=== PATIENT | male | born 1975 | race Caucasian/White ===

== ENCOUNTER 2024-08-25 10:19 | Emergency (ER) | payer OTHER, SELFPAY ==
[2024-08-25 10:30] VITALS: BP 150/92; PULSE 73; RESP 16; TEMP 36.8; O2SAT 100
--- OUTSIDE RECORDS SUMMARY | 2024-08-25 10:40 | XMS_ITS | Clinical Summary ---
Author Organization [facility] Address [address] [place] [id number] Care Team Providers Care Spinning Frame Cleaner Name Role Phone Baldemar Murrell MD Primary Care Provider [phone] Allergies No known active allergies Medications No known medications Active Problems Problem Noted Date Diagnosed Date Witnessed episode of apnea 06/28/2019 Essential hypertension 05/24/2019 Family History Medical History Relation Comments Heart Attack Father Hypertension Father Diabetes Mother Breast Cancer Neg Hx Colon Cancer Neg Hx Prostate Cancer Neg Hx Relation Status Comments Father Alive Mother Alive Social History Tobacco Use Types Packs/Day Years Used Date Smoking Tobacco: Never Smokeless Tobacco: Never Alcohol Use Standard Drinks/Week Comments Yes 0 (1 standard drink = 0.6 oz pur e alcohol) occasionally Sex and Gender Information Value Date Recorded Sex Assigned at Not on file Legal Sex Male 5:33 PM BILINGUAL INTERPRETER Gender Identity Not on file Sexual Orientation Not on file Last Filed Vital Signs Vital Sign Reading Time Taken Comments Blood Pressure 132/84 06/28/2019 8:52 AM CDT Pulse 66 06/28/2019 8:52 AM CDT Temperature 36.4 C (97.6 F) 05/24/2019 9:03 AM BILINGUAL INTERPRETER Respiratory Rate 19 05/24/2019 9:03 AM BILINGUAL INTERPRETER Oxygen Saturation 98% 06/28/2019 8:52 AM CDT Inhaled Oxygen Concentration - - Weight 102 kg (224 lb 12.8 oz) 06/28/2019 8:52 A M CDT Height 175.3 cm (5' 9 ) 05/24/2019 9:03 AM BILINGUAL INTERPRETER Body Mass Index 33.2 05/24/2019 9:03 AM BILINGUAL INTERPRETER Plan of Treatment Health Maintenance Due Date Last Done Comments Colorectal Cancer Screening Colonoscopy (10 Years) 1976 Hepatitis C 1994 DTaP, Tdap and Td Vaccines ( 1 - Tdap) 1995 Hepatitis B Vaccines (1 of 3 - 19+ 3-dose series) 1995 Annual Physical 05/24/2020 05/24/2019 COVID-19 Vaccine (1 - 2023-2 5 season) 2023 Meningococcal B Vaccine Aged Out No l onger eligible based on patient's age to complete this topic Meningococcal Vaccine Aged Out No raissa luis armando eligible based on patient's age to complete this topic Pneumococcal Vaccine: Pediat rics (0 to 5 Years) and At-Risk Patients (6 to 49 Years) Aged Out No longer eligi ble based on patient's age to complete this topic RSV Immunizations Under 20 Months Aged Out No longer eligible based on patient's age to complete this topic Insurance [address] Care Teams Spinning Frame Cleaner Relationship Specialty Start Date End Date Baldemar Murrell MD PCP - General FAMILY PRACTICE 05/11/19
--- NOTE | 2024-08-25 10:52 | ED.URI ---
HPI - URI/Sore Throat General Chief Complaint: Upper Respiratory Infection Stated Complaint: sinus infection Time Seen by Provider: 08/25/24 10:44 Source: patient, family, RN notes reviewed and old records reviewed Mode of arrival: ambulatory Limitations: no limitations History of Present Illness HPI Narrative: 49 year old male accompanied by significant other presents to express care with complaint of sinus congestion with drainage, facial pressure in face with stated fevers during the night. Patient reports that he took some NyQuil during the night so he could sleep. Patient reports that he does have increased pressure to face when he bends over and some intermittent headache, reports that he has a sinus infection and needs antibiotic. MD elicited complaint: fever, rhinorrhea, nasal congestion, sinus pain and other (states has sinus infection) Pertinent past history: sinusitis, seasonal allergies and other Onset (ago): day(s) (yesterday evening) Consistency: progressively worsening Pain scale (0-10): 4 Able to tolerate fluids by mouth: Yes Exacerbating factors: leaning forward Treatments prior to arrival: other (NyQuil) Related Data Allergies Allergy/AdvReac Type Severity Reaction Status Date / Time No Known Allergies Allergy Unverified 08/25/24 10:32 Review of Systems Review of Systems: CONSTITUTIONAL: Reports malaise, chills, sweats, or fever. EYES: Denies visual changes, redness, or discharge. ENT: Reports rhinorrhea, congestion, sinus pain, no otalgia and minimal scratchy sore throat. CARDIOVASCULAR: Denies chest pain, palpitations, or edema. RESPIRATORY: Reports occasional cough. Denies dyspnea. GASTROINTESTINAL: Denies abdominal pain, nausea, vomiting, diarrhea SKIN: Denies rash or itching. MUSCULOSKELETAL: Denies myalgia. NEUROLOGIC: reports headache. All systems reviewed & are unremarkable except as noted in HPI and below PMFSH Past Medical History Medical History (Updated 08/25/24 @ 13:17 by Christin Lopez NP) Sinusitis Seasonal allergies Social History Social History (Updated 08/25/24 @ 13:14 by Christin Lopez NP) Smoking status: Never smoker Alcohol intake: current Alcohol use details: social Substance use type: does not use Living arrangements: with family Gender identity (if verbalized by the patient): Male Comments At time of signature, agree with nursing past medical, surgical, social and family history. There is no relevant family history pertinent to the presenting complaint Exam Narrative: GENERAL: Well-appearing, well-nourished, and in no acute distress. HEAD: Normocephalic EYES: PERRLA, conjunctivae clear ENT: Nares clear, turbinates edematous and erythematous, clear to light yellow drainage, facial pressure and headache. Mucous membranes moist. TM pearly corral with dull light reflex bilaterally; no tragal tenderness. Oropharynx erythematous without lesions. Tonsils not enlarged and without exudate, no drooling, no hoarseness, no trismus, uvula midline. post nasal drainage NECK: Supple. No lymphadenopathy CHEST: Clear to auscultation, breath sounds equal. No wheezing, rhonchi, rales, or stridor. No respiratory distress, speaks in full sentences.no cough noted SAO2 100% on room air HEART: Regular rate and rhythm. No murmur heard. SKIN: Warm, dry, no rash. NEURO: Alert and oriented x3. PSYCH: Normal mood and affect Course Course Emergency Course: Patient is aware of diagnosis, understands and agrees to treatment plan. Anticipatory guidance given. Patient agrees to follow-up as directed and is aware of reasons to seek care at the emergency department. Portions of this record may have been created with voice recognition software Level of Care: Express Care Visit Vital Signs Vital signs: Vital Signs Temperature 36.8 C 08/25/24 10:30 Pulse Rate 73 08/25/24 10:30 Respiratory Rate 16 08/25/24 10:30 Blood Pressure 150/92 H 08/25/24 10:30 Pulse Oximetry 100 08/25/24 10:30 Oxygen Delivery Room Air 08/25/24 10:30 Temperature 36.8 C 08/25/24 10:30 Pulse Rate 73 08/25/24 10:30 Respiratory Rate 16 08/25/24 10:30 Blood Pressure 150/92 H 08/25/24 10:30 Pulse Oximetry 100 08/25/24 10:30 Oxygen Delivery Room Air 08/25/24 10:30 Reviewed MDM - URI/Sore Throat MDM Narrative Medical decision making narrative: Differential diagnosis considered: Chao virus, strep pharyngitis, allergic rhinitis, upper respiratory tract infection, sinusitis, rhinosinusitis, nasopharyngitis. viral pharyngitis, otitis media, otitis externa, pneumonia, bronchitis, viral cough syndrome, viral syndrome, and influenza. Exam findings show no acute concerns or changes; patient is non-toxic appearing and is in no distress. Patient is appropriate for outpatient treatment and follow-up. Differential Diagnosis Differential diagnosis: Likely upper respiratory infection, sinusitis, viral infection and other (sinus drainage with headache and sinus prssure) Medical Records Attestation: I reviewed the patient's medical records. Lab Data Attestation: I reviewed the patient's lab results. Critical Care Time Critical Care Time Critical Care Time: No Discharge Plan Discharge Clinical Impression: History of sinusitis, bacterial Upper respiratory infection Qualifiers: URI type: unspecified URI Qualified Code(s): J06.9 - Acute upper respiratory infection, unspecified Patient Disposition: Home Condition: Stable Instructions: Antibiotic Form, Upper Respiratory Infection (ED) Additional Instructions: Increase fluids especially juices and water [id number] cough and cold medicine of your choice for your symptoms Zyrtec Claritin or Stephanie daily include Coricidin brand decongestant due to your elevated blood pressure heat to the face 20-30 minutes 4-6 times a day for pain Salt water gargles, throat lozenges or throat sprays as desired Nasal saline rinses daily and p.r.n. as needed Antibiotic as directed--finished the medication If your symptoms persist, change or worsen significantly before you can contact your personal physician then please, without delay, go to the emergency department for further evaluation. Follow-up with PCP in 7-10 days or sooner if needed Follow up with PCP soon in regards to your blood pressure which is elevated above threshold for referral. Blood pressure above 120/80 may indicate pre-hypertension. 150/92 Patient Language: Georgian Prescriptions: New amoxicillin 500 mg capsule 1,000 mg PO Q12H 10 Days Qty: 40 0RF Rx Instructions: take all doses of antibiotic Follow-up/Referrals: PHYSICIAN,AMBULANCE ATTENDANT [Primary Care Provider] - Time of Disposition: 10:55 Quality [employer] Coma Scale Eyes: Open Verbal: Oriented and Alert Motor: Follows Commands Devika Coma Total Score: 15
== END 2024-08-25 11:03 | disposition home or self-care (01) ==
PROVIDERS: Emergency Provider Registered Nurse; Referring Provider Emergency Medicine
DX: J32.9 Chronic sinusitis, unspecified (principal); J06.9 Acute upper respiratory infection, unspecified
CPT/HCPCS: 99203; G0463

== ENCOUNTER 2025-02-22 13:04 | Emergency (ER) | payer OTHER, SELFPAY ==
--- NOTE | 2025-02-22 13:06 | ED.SKABFB ---
HPI - Skin/Abscess/Foreign Bdy General Chief complaint: Skin/Abscess/Foreign Body Stated complaint: rash Time Seen by Provider: 02/22/25 13:05 Source: patient Mode of arrival: ambulatory Limitations: no limitations History of Present Illness HPI narrative: Patient is a 49-year-old male who presents with rash to face and neck. Patient had tree fall down in the yd nose thinning up on Friday when he got into [place] weekends. Rash is red and swollen but not itchy and lets he puts warm water are on face. Denies any difficulty breathing or vision changes. Related Data Allergies Allergy/AdvReac Type Severity Reaction Status Date / Time No Known Allergies Allergy Verified 02/22/25 13:17 Review of Systems Review of Systems: All systems reviewed & are unremarkable except as noted in HPI and below Constitutional: Constitutional: Denies body ache(s), Denies chills, Denies fatigue, Denies fever(s), Denies headache(s), Denies malaise and Denies weakness Eyes: Eyes: Denies blurry vision, Denies irritation and Denies loss of vision ENT: Denies otalgia, Denies headache(s), Denies nasal discharge, Denies sinus pain and Denies sore throat Cardiovascular: Cardiovascular: Denies chest pain, Denies irregular heart rhythm and Denies dyspnea Respiratory: Respiratory: Denies dyspnea Gastrointestinal: Gastrointestinal: Denies abdominal pain, Denies melena, Denies hematochezia, Denies diarrhea, Denies nausea and Denies vomiting Musculoskeletal: Musculoskeletal: Denies back pain, Denies myalgias and Denies arthralgias Integumentary/Breasts: Skin/Breast: Denies pruritus and Reports rash Neurologic: Denies headache(s), Denies loss of vision and Denies weakness Psychiatric: Psychiatric: Reports no additional psychiatric complaints Endocrine: Endocrine: Denies fatigue PMFSH Past Medical History Medical History Sinusitis Seasonal allergies Social History Social History Alcohol intake: current Alcohol use details: social Substance use type: does not use Living arrangements: with family Gender identity (if verbalized by the patient): Male Comments At time of signature, agree with nursing past medical, surgical, social and family history. There is no relevant family history pertinent to the presenting complaint. Exam Const: General: cooperative, healthy appearing, comfortable, no acute distress and well nourished Nutritional Appearance: well nourished Orientation/consciousness: patient oriented x3 Limitations: no limitations HENMT: Head: normal to inspection, normocephalic and atraumatic Ears: hearing grossly normal bilaterally and external ears normal Face/Nose/Sinus: Normal external nose present, normal facial exam and face symmetric Face and sinus: normal facial exam and face symmetric Mouth: Yes lip normal Eyes: General: appearance normal, both eyes and all related structures Alignment and Position: alignment normal and position normal Periorbital: periorbital findings normal Eyelids: eyelids normal Pupils: Equal, round and reactive pupils present EOM: EOMs intact bilaterally Neck: Neck: normal visual inspection, full ROM and supple Chest: Chest palpation & inspection: normal inspection of the chest Resp: Effort & Inspection: normal respiratory effort and able to speak in complete sentences Auscultation: clear to auscultation bilaterally Cardio: Rate: regular rate Rhythm: regular rhythm Heart sounds: S1 normal heart sound present and S2 normal heart sound present GI: Inspection: normal to inspection Skin: General skin exam: normal color Rashes: rashes noted hives face arrangement grouped, borders sharp and irregular, color red and surface erythematous and warm Neuro: General: patient oriented x3 and moves all extremities Cranial nerves: Yes Equal, round and reactive pupils present Speech: normal speech Gait exam (Neuro): Normal gait present Extrem: General: normal to inspection, full ROM and no edema Psych: Appearance: grossly normal and well kempt Mental Status: mental status grossly normal Speech and movement: Normal speech and movement present Affect: normal affect Attitude: cooperative Thought process: Normal thought process present Course Course Emergency Course: Patient is aware of diagnosis, understands and agrees to treatment plan. Anticipatory guidance given. Patient agrees to follow-up as directed and is aware of reasons to seek care at the emergency department. Portions of this record may have been created with voice recognition software Level of Care: Express Care Visit Vital Signs Vital signs: Reviewed MDM - Skin/Abscess/Foreign Bdy MDM Narrative Medical decision making narrative: Will treat with steroids Pt well hydrated appearing, in no respiratory distress, hemodynamically stable. Recommend supportive care. The patient is stable at time of discharge the clinical impression was discussed and the patient was given the opportunity to ask questions, which were addressed as completely as possible given the information available at present. Anticipatory guidance and return to care precautions were discussed and the importance of primary care follow-up was stressed and encouraged. The patient voiced understanding of the plan, indications to return, and the need for follow-up. Exam findings show no acute concerns or changes Patient is appropriate for outpatient treatment and follow-up. Differential Diagnosis Differential diagnosis: Likely urticaria, cellulitis, eczema, insect bites and contact dermatitis Medical Records Attestation: I reviewed the patient's medical records. Discharge Plan Discharge Clinical Impression: Contact dermatitis Qualifiers: Contact dermatitis type: allergic Contact dermatitis trigger: non-food plants Qualified Code(s): L23.7 - Allergic contact dermatitis due to plants, except food Patient Disposition: Home Condition: Stable Instructions: Contact Dermatitis (ED) Additional Instructions: Take steroid in the morning with food. Take Claritin, Zyrtec or Stephanie in the morning along with Benadryl at night. Wash the skin thoroughly with soap and cool water as soon as possible. Scrub under the fingernails with a brush to prevent spreading to other parts of the body by touching or scratching. For some people, adding oatmeal to a bath, applying cool wet compresses, and applying calamine lotion may help to relieve itching IF symptoms get worse to follow up with your primary care provider or seek ER visit if you developing difficulty breathing, weakness, dizziness Patient Language: Mohawk Prescriptions: New prednisone 10 mg tablet See Rx Instructions .ROUTE .COMPLEX Qty: 35 0RF Rx Instructions: 40 mg daily for 5 days, 20 mg daily for 5 days, 10 mg daily for 5 days Follow-up/Referrals: Farshad Augustin MD [Physician, Family Practice] - 1 Week Time of Disposition: 13:19
--- OUTSIDE RECORDS SUMMARY | 2025-02-22 13:08 | XMS_ITS | Clinical Summary ---
Author Organization [facility] Address [address] [place] [id number] Care Team Providers Care Lay Out Drafter Name Role Phone Baldemar Murrell MD Primary Care Provider [phone] Allergies No known active allergies Medications No [...] on file Legal Sex Male 5:33 PM ACID CUTTER Gender Identity Not on file Sexual Orientation Not on file Last Filed Vital Signs Vital Sign Reading Time Taken Comments Blood Pressure 132/84 06/28/2019 8:52 AM CDT Pulse 66 06/28/2019 8:52 AM CDT Temperature 36.4 C (97.6 F) 05/24/2019 9:03 AM ACID CUTTER Respiratory Rate 19 05/24/2019 9:03 AM ACID CUTTER Oxygen Saturation 98% 06/28/2019 8:52 AM CDT Inhaled Oxygen Concentration - - Weight 102 kg (224 lb 12.8 oz) 06/28/2019 8:52 A M CDT Height 175.3 cm (5' 9) 05/24/2019 9:03 AM ACID CUTTER Body Mass Index 33.2 05/24/2019 9:03 AM ACID CUTTER Plan of Treatment Health Maintenance Due Date Last Done Comments Colorectal Cancer Screening Colonoscopy (10 Years) 1976 Hepatitis C 1994 DTaP, Tdap and Td Vaccines ( 1 - Tdap) 1995 Hepatitis B Vaccines (1 of 3 - 19+ 3-dose series) 1995 Annual Physical 05/24/2020 05/24/2019 COVID-19 Vaccine (1 - 2024-2 6 season) 2024 Influenza Adult (#1) 2025 Hepatitis A Vaccines Aged Out No long er eligible based on patient's age to complete this topic Meningococcal B Vaccine Aged Out No l [...] patient's age to complete this topic Insurance [address] Care Teams Lay Out Drafter Relationship Specialty Start Date End Date Baldemar Murrell MD PCP - General FAMILY PRACTICE 05/11/19
[2025-02-22 13:15] VITALS: BP 155/94; PULSE 86; RESP 18; TEMP 37.5; O2SAT 100
== END 2025-02-22 13:23 | disposition home or self-care (01) ==
PROVIDERS: Emergency Provider Nurse Practitioner Family
DX: L23.7 Allergic contact dermatitis due to plants, except food (principal)
CPT/HCPCS: 99213; G0463